=== PATIENT | male | born 1995 | race Caucasian/White ===

== ENCOUNTER 2021-02-25 00:47 | Emergency (ER) | payer OTHER ==
[~2021-02-25] VITALS: Ht 180.3 cm; Wt 77.3 kg
[2021-02-25 02:11] LABS: BASO # 0.1 (0.0-0.2); BASO % 0.9 % (0.0-2.0); EOS # 0.4 (0.0-0.7); EOS % 3.9 % (0-4.0); GRAN # 7.2 (1.4-6.5); GRAN % 68.1 % (42.2-75.2); HEMOGLOBIN 13.2 g/dl (13.5-18.0); LYMPH % 18.9 % (20.0-51.0); MEAN CELL VOLUME 77 fl (80.0-100.0); MEAN CORPUSCULAR HEMOGLOBIN 25 pg (27.0-31.0); MEAN CORPUSCULAR HGB CONC 32 g/dl (33.0-37.0); MEAN PLATELET VOLUME 10.7 fl (7.4-10.4); MONO # 0.8 (0.1-0.6); MONO % 7.7 % (1.7-9.3); PLATELET COUNT 396 K/mm3 (130-400); REDCELL DISTRIBUTION WIDTH-CV 15.1 % (11.5-14.5)
[2021-02-25 02:33] LABS: ALBUMIN 3.4 gm/dL (3.5-5.0); BILIRUBIN,TOTAL 0.2 mg/dL (0.0-1.0); CALCIUM 8.9 mg/dL (8.4-10.2); CREATININE, serum 0.95 (0.66-1.25); TOTAL PROTEIN 6.4 gm/dL (6.4-8.2)
[2021-02-25 04:25] LABS: AMORPHOUS CRYSTAL Present /uL; MUCOUS Present /lpf; PH 5 (5-8); SQUAMOUS EPITHELIAL None Seen /hpf; URINE APPEARANCE Hazy; URINE BACTERIA None Seen /hpf; URINE BILIRUBIN Negative (NEGATIVE); URINE BLOOD Negative (NEGATIVE); URINE COLOR Yellow; URINE GLUCOSE Negative (NEGATIVE); URINE KETONE Trace (NEGATIVE); URINE LEUKOCYTE ESTERASE Negative (NEGATIVE); URINE NITRATE Negative (NEGATIVE); URINE PROTEIN(semi-quant) Negative (NEGATIVE); URINE RBC 0-2 /hpf; URINE UROBILINOGEN Negative (NEGATIVE); URINE WBC 0-2 /hpf
[2021-02-25 04:47] LABS: COLLECTION METHOD CLEAN CATCH
[2021-02-25 06:46] VITALS: BP 121/74; PULSE 74; TEMP 98.4
== END 2021-02-25 06:48 | disposition home or self-care (01) ==
LOC: COL.ER 00:47
PROVIDERS: Emergency Medicine
DX: K59.00 Constipation, unspecified (principal); R10.30 Lower abdominal pain, unspecified; Z90.49 Acquired absence of other specified parts of digestive tract; Z87.19 Personal history of other diseases of the digestive system
CPT/HCPCS: J0500; J2270; J2405; J7030; Q9967